=== PATIENT | female | born 1945 | race Caucasian/White ===

== ENCOUNTER → 2016-12-08 | Outpatient (CLI) | payer OTHER ==
[~2016-12-08] VITALS: Ht 160 cm; Wt 67.1 kg
[~2016-12-08] MED LIST: ALDACTONE25 MG PO; ALDACTONE50 MG PO; BIOTIN1 MG PO; HYDROCODONE-AP1 EAC6 PO; IBUPROFEN 600600 M1 PO; LEVOTHYROXIN0.075 MG PO; LEVOTHYROXINE0.05 MG PO; LIPITOR 20 MG T20 M1 PO; NORTRIPTYLINE H10 M1 PO; OXYCODONE-ACET1 EAC2 PO; RESTORIL15 MG PO; RESTORIL7.5 MG PO; TRAMADOL 50 MG50 MG PO; VITAMIN D1000 UNI1 PO; VOLTAREN GEL 1100 G1 TOP; [UNRECOGNIZED DRUG - OTHER]; [UNRECOGNIZED DRUG - OTHER]
--- NOTE | ~2016-12-08 | HPC ---
[facility] [address] [place] [address] PAIN MANAGEMENT CONSULTATION Name: DAVID AUGUSTINE Room #: REG TOMY RomeoArnulfo.#: [id number] Admission: 12/08/16 Attend Phys: Fran Sapp MD Discharge: Date of : 49 Report #: [id number] THIS REPORT FOR: //name// CC: Tristen Sapp DATE OF SERVICE: 12/08/2016 DATE OF REGISTRATION: 12/08/2016 Followup visit for chronic intractable right hip pain. The patient returns to the pain clinic today for a refill of oxycodone. I provided with small amounts of oxycodone on a daily basis. She drives a good distance from [facility]. She was last seen about 8 months ago. Over the course of that time, she has had a total of 270 oxycodone tablets, so she uses on an average about 1 tablet a day. At times, she breaks them in half and there are days where she takes two and days where she takes none. She does not require this on a day to day basis; however, when she has it available, it dramatically reduces her pain. Her pain is a 6/10 today and she can reduce that by at least 50% or more when she has oxycodone available to take after an active day of either prolonged driving or activities. She is here today in the city with her grandchildren. She made an appointment to be seen. PAST MEDICAL HISTORY: Remarkable for an injury in 2006 when she fell and was stepped on by a horse. She says she has had ongoing pain throughout that hip, responding to medication. We have done some injections without much benefit. Urine drug screen in the past was performed and was negative for medication provided. Because of the long interval in between her visits, we anticipated or assumed that she was receiving medication only from us and she had simply run out of medication. A ____ was performed and there were no other prescribers for medication, although she did have some cough syrup provided by her primary care physician ____ a few months ago when she had an upper respiratory tract infection. This was no more than 7 days of an antitussive cough syrup that had some hydrocodone in it. We discussed the terms of our opioid agreement. We reviewed the opioid crisis in the [place]. We discussed the CDC guidelines. Under terms of our opioid agreement, I have agreed to provide her with another prescription today with release in 4 and 8 weeks. She is some distance away. I will, however, provide her instead of 90 tablets per prescription, I will provide her with 60, that is closer to what she is actually using per month. [address] [address] PAIN MANAGEMENT CONSULTATION Name: DAVID AUGUSTINE Room #: REG TOMY Butts.#: [id number] Admission: 12/08/16 Attend Phys: Fran Sapp MD Discharge: Date of : 49 Report #: [id number] PHYSICAL EXAMINATION: Her blood pressure is 114/85, heart rate 82, respirations 16. BMI is 26.5. She shows no signs of overmedication, anxiety or depression. She is able to move from sitting to standing position without difficulty. She walks without a cane or assistive device. There is no significant antalgic feature to her gait. Examination of the right hip reveals some tenderness overlying the trochanter, which is moderate. There is mild pain with internal and external rotation. IMPRESSION: 1. Chronic trochanteric bursitis and hip pain. Iliotibial band syndrome. Pain is related to an injury, when she fell from a horse nearly 10 years ago. Chronic intractable pain. 2. Management of high risk medication. RECOMMENDATIONS: Medications renewed under terms of our agreement, a total of 180 tablets provided over release the next 3 months. I will see her back in the clinic as needed. By: [id number] Fran Sapp MD /nt
[2016-12-08 14:20] VITALS: BP 114/85
== END | disposition home or self-care (01) ==
LOC: PAIN 06:55
DX: M70.61 Trochanteric bursitis, right hip (principal); G89.29 Other chronic pain; M76.31 Iliotibial band syndrome, right leg; F11.20 Opioid dependence, uncomplicated; Z91.81 History of falling

== ENCOUNTER → 2018-01-07 | Outpatient (CLI) | payer OTHER ==
[~2018-01-07] VITALS: Ht 160 cm; Wt 69.2 kg
[~2018-01-07] MED LIST changes: +ARNICA120 ML TOP; +CASODEX 50 MG T50 M1 PO; +NAPROXEN375 M1 PO
--- NOTE | ~2018-01-07 | HPC ---
[facility] [address] [address] PAIN MANAGEMENT CONSULTATION Name: DAVID AUGUSTINE Room #: REG TOMY Beckie.#: [id number] Admission: 01/07/18 Attend Phys: Fran Sapp MD Discharge: Date of : 49 Report #: [id number] THIS REPORT FOR: //name// CC: Tristen Sapp DATE OF SERVICE: 01/07/2018 Followup visit for severe intractable left hip pain. The patient has returned to pain clinic today for followup. She has chronic hip pain well documented throughout my record. We have been providing with medication under terms of written opioid agreement. She uses oxycodone 10/325 twice a day. This is a morphine milligram equivalency of 30. She has shown no side effects and is grateful for this pain relief that she gets and improves her day-to-day function. She safeguards her medication carefully. I have given her prescriptions today for the oxycodone as well as 2 prescriptions, one for Celebrex and one for Motrin 600 mg t.i.d. She will evaluate these on their merits. She should not take both anti-inflammatories on the same day. A note was filed to the pharmacist explaining our plans. It has been about 2-1/2 years since I have done a drug screen and I recommended an oral buccal drug screen today, which we did prior to her discharge. We will review the results of this random study. IMPRESSION: 1. Chronic right hip pain due to a distant trauma with trochanteric bursitis. 2. Management of opioid therapy under terms of written agreement. [facility] was again reviewed and that showed no evidence of misuse, abuse or multiple providers. PLAN: Her medications were released under terms of our agreement, and I will see her back in the pain clinic for followup in 3 months. By: [id number] Fran Sapp MD /nt
[2018-01-07 09:40] VITALS: BP 134/86
== END ==
LOC: PAIN 06:10
DX: M70.61 Trochanteric bursitis, right hip (principal); G89.29 Other chronic pain; Y93.89 Activity, other specified; Z79.891 Long term (current) use of opiate analgesic

== ENCOUNTER → 2018-06-18 | Outpatient (CLI) | payer OTHER ==
[~2018-06-18] VITALS: Ht 160 cm; Wt 70.6 kg
[~2018-06-18] MED LIST changes: +LASIX 20 MG TAB20 MG PO; +VENTOLIN HFA 1818 GM INH
[2018-06-18 14:32] VITALS: BP 127/86
--- NOTE | 2018-06-18 14:38 | NUR ---
Pain Clinic Assessment: 1. History of Osteoarthritis: Not Applicable History of Rheumatoid Arthritis: Not Applicable 2. Height: 5 ft. 3 in. 160.0 cm. Weight: 155.6 lb. oz. 70.580 kg. Patient's BMI: 27.6 3. Vital Signs: BP: 127/86 Pulse: 74 Resp: 16 Temp: 02 Sat: 98 ECG Mon: 4. Pain Intensity: 4 5. Fall Risk: Dizziness: N Needs help standing or walking: N Fallen in the last 3 months: N Fall risk comments: 6. Patient on Blood Thinner: None 7. History of Hypertension: N 8. Opioid Therapy greater than 6 weeks: Y Opiate Contract Signed: 03/14/15 9. Risk Assessment Tool Provided: 0-LOW RISK 10. Functional Assessment Tool: 11. Recreational Drug Use: Never Drug Type: Tobacco Use: Never Smoker Tobacco Type: Amount or Packs/day: How Many Years: Alcohol Use: No Frequency: Quant:
--- NOTE | 2018-06-23 11:18 | HPC ---
[facility] [address] [place] [address] PAIN MANAGEMENT CONSULTATION Name: DAVID AUGUSTINE Room #: REG TOMY RomeoEarleneKevin.#: [id number] Admission: 06/18/18 Attend Phys: Fran Sapp MD Discharge: Date of : 49 Report #: [id number] THIS REPORT FOR: //name// CC: Tristen Sapp DATE OF SERVICE: 06/18/2018 The patient returns to pain clinic today in followup for medication management. She has severe right hip pain, which is posttraumatic. She was injured by horse stepping on her many years ago and has complained of chronic pain ever since. Today, she says it feels as though her hip is slipping in and out of socket. She has not had x-rays for some time. Pain intensity is a 4/10. It is worse with sitting and driving. She has used arnica gel in addition to the medications that we provided her under terms of written agreement. She is grateful for the relief that she gets from her oxycodone, taking OxyContin 10/325 twice a day and ibuprofen or Celebrex sparingly. She does not take them on a daily basis understanding the potential side effects and risks. She does not have significant opioid related side effects. Buccal drug testing was been performed and there were no suspected findings. She receives her medicine at one pharmacy and the review of the [facility] [email or web address]] information shows that I am the only provider of the oxycodone, although she did receive some cough syrup from a local physician, Dr. Michelle Mario in [place] in April. PHYSICAL EXAMINATION: GENERAL: Pleasant, alert and oriented. No signs of overmedication, depression or anxiety. VITAL SIGNS: Blood pressure is 127/86, heart rate 74, respirations 16. BMI is 27.6. MUSCULOSKELETAL: Examination of the hip reveals good range of motion in the supine position. Internal and external rotation performed without difficulty. There is mild tenderness over the anterior hip joint and tenderness in the groin as well. Straight leg raising is negative. No focal weakness is noted, muscle testing with abduction and adduction, leg extension and flexion. Sensation is normal in lower extremities. Deep tendon reflexes are normal. No recent x-rays of the hip are noted. IMPRESSION: 1. 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 2. History of trochanteric bursitis. 3. Management of opioid medication under written agreement. [address] [address] PAIN MANAGEMENT CONSULTATION Name: DAVID AUGUSTINE [facility] #: [facility] [id number] Admission: 06/18/18 Attend Phys: Fran Sapp MD Discharge: Date of : 49 Report #: [id number] PLAN: 1. I talked about perhaps getting an MRI to give us more information about the ongoing pain generator. She does not want to do anything different. An MRI, really I do not think would provide us any information with change, which she would do at this point in time and she understands that if she ever decides to pursue other options including surgical options either arthroscopy or perhaps even if severe and have a hip replacement, we would then move forward with imaging studies, that is her preference. 2. I will continue her medications under terms of our written agreement. She will safeguard her medications carefully. Followup visit scheduled in 3 months. She travels some distance to see me. I will be glad to pass medication off to a local physician if they are comfortable for writing for this low MME of opioid medication. Her daily MME is 30. <ELECTRONICALLY SIGNED> By: Fran Sapp MD 06/23/18 [id number] [id number] 21 Fran Sapp MD /nt
== END ==
LOC: PAIN 08:14
DX: M25.551 Pain in right hip (principal); G89.29 Other chronic pain; M70.60 Trochanteric bursitis, unspecified hip; Z79.891 Long term (current) use of opiate analgesic

== ENCOUNTER → 2019-10-27 | Outpatient (CLI) | payer OTHER ==
[~2019-10-27] VITALS: Ht 160 cm; Wt 70.1 kg
[~2019-10-27] MED LIST changes: +OXYCODONE-ACET1 EACH PO
--- NOTE | ~2019-10-27 | HPC ---
[facility] [address] [address] PAIN MANAGEMENT CONSULTATION Name: DAVID AUGUSTINE Room #: REG TOMY Anjali#: [id number] Admission: 10/27/19 Attend Phys: Fran Sapp MD Discharge: Date of : 49 Report #: [id number] THIS REPORT FOR: cc: Tristen France MD, Joseph R. MD Morgan, Richard L. MD ~ CC: Dr. Sera Sapp DATE OF SERVICE: 10/27/2019 CHIEF COMPLAINT: Chronic pain, bilateral thighs, hips and low back. The patient is a pleasant 74-year-old female who we previously cared for in our clinic between 2013 and 2018. At that time, her primary complaint involved her right hip, which was injured in an accident with horse injury. She was stepped on suffering an injury to her right hip and greater trochanter. Pain has never really resolved. For many years, she was treated conservatively and walked with a limp. Pain limited her day-to-day activities. In 2013, we saw her for the first time roughly 9 years after her initial injury. We ordered physical therapy for the hip and also suggested trochanteric bursa injections. She tried non-opioid medications including oral and topical nonsteroidal anti-inflammatory drugs. Ultimately, we moved into low dose opioid therapy and she began using oxycodone under an opioid agreement. I reviewed those records and her prescriptions were provided either bimonthly or trimonthly and her maximum dose of oxycodone never exceeded oxycodone 10/325 one-half to one tablet twice a day. An opioid agreement was established. Some urine drug screen followup tests were performed and there were never any red flag behaviors. She was lost to follow up, roughly 2 years ago. I discussed the reason why she left the practice. She reports financial difficulties. She fell into bankruptcy after the passing of her who is much older than her. She had difficulty traveling to and from [facility]. She tried to manage without opioid medication. The pain is worsened and now she is scoring her pain at a 6/10 and at night it interferes dramatically with her ability to sleep. An impacted pain score was performed today and she scored 33/70. This is not too bad, but she has interference and general activity, mood, walking, normal work, sleep and enjoyment of life all above the level 5 achieved a score. She did complete an opioid risk tool score and her total score and risk category is slow 0. [facility] [address] [place] [address] PAIN MANAGEMENT CONSULTATION Name: DAVID AUGUSTINE Room #: REG [facility]#: [id number] Admission: 10/27/19 Attend Phys: Fran Sapp MD Discharge: Date of : 49 Report #: [id number] She denies use of tobacco and alcohol. She lives alone and independently. PHYSICAL EXAMINATION: Pleasant female, no signs of overmedication, depression or anxiety. Her blood pressure is 132/84, heart rate 89, respirations 16, O2 sat 98. She is 5 feet 3 inches, 154 pounds, BMI is 27.4. She can move independently from sitting to standing position, her gait is mildly antalgic. She has pain in the neck with flexion, extension, rotation, and [id number] tilt. Myofascial tenderness is located posteriorly in the trapezius, splenius capitis and cervicalgia. She also has bilateral trochanter tenderness and now still worse in the right than the left. Pain with rotational movements. IMPRESSION: 1. 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 2. Bilateral trochanteric bursitis. 3. Cervicalgia. 4. History of use of opioids under terms of written opioid agreement without evidence of misuse, abuse. No evidence of prior addictive behaviors. No evidence of opioid use disorder. RECOMMENDATIONS: I have agreed to renew opioids for her and followup in [address] for her to travel from [place], [place] where she would normally receive her care, I would be fine if her primary care physician was willing to provide her medication on a very scheduled limited dose. I am going to provide her with oxycodone 5/325 one tablet b.i.d. p.r.n. This is a total of 10 mg of oxycodone a day or MME of 15, considered very low by the CDC guideline. We reviewed the terms of our opioid agreement, the importance of carefully safeguarding medication, using the medication, both prophylactically and in response to pain. Finally, she was given a prescription for amitriptyline by her primary care physician. I agree with the use of amitriptyline and spent 10 minutes with her discussing the ascending and descending pathways for pain management. Amitriptyline is a tricyclic antidepressant works on the descending pain pathways in essence turning down the pain signals and decreasing the intensity of pain. I explained to her how she should use it every night and described with her side effects including the anticholinergic side effects on the beneficial sleep and mood, side effects of amitriptyline. She will give it a go and follow up with her primary care physician regarding use of the amitriptyline. She can use them concurrently. Followup visit planned in 2 months. By: [id number] Fran Sapp MD /kim
[2019-10-27 14:26] VITALS: BP 132/84
--- NOTE | 2019-10-27 14:42 | NUR ---
Pain Clinic Assessment: 1. History of Osteoarthritis: Not Applicable History of Rheumatoid Arthritis: Not Applicable 2. Height: 5 ft. 3 in. 160.0 cm. Weight: 154.6 lb. oz. 70.126 kg. Patient's BMI: 27.4 3. Vital Signs: BP: 132/84 Pulse: 89 Resp: 16 Temp: 02 Sat: 98 ECG Mon: 4. Pain Intensity: 6 5. Fall Risk: Dizziness: N Needs help standing or walking: N Fallen in the last 3 months: N Fall risk comments: 6. Patient on Blood Thinner: None 7. History of Hypertension: N 8. Opioid Therapy greater than 6 weeks: Y Opiate Contract Signed: 03/14/15 9. Risk Assessment Tool Provided: 0-LOW RISK 10. Functional Assessment Tool: 11. Recreational Drug Use: Never Drug Type: Tobacco Use: Never Smoker Tobacco Type: Amount or Packs/day: How Many Years: Alcohol Use: No Frequency: Quant:
== END ==
LOC: PAIN 06:56
DX: M54.5 Low back pain (principal); M25.552 Pain in left hip; M25.551 Pain in right hip; M54.2 Cervicalgia; M71.58 Other bursitis, not elsewhere classified, other site; F11.20 Opioid dependence, uncomplicated; Z98.890 Other specified postprocedural states

== ENCOUNTER → 2020-01-02 | Outpatient (CLI) | payer OTHER ==
[~2020-01-02] VITALS: Ht 160 cm; Wt 69.1 kg
--- NOTE | ~2020-01-02 | HPC ---
[facility] [address] [place] [address] PAIN MANAGEMENT CONSULTATION Name: DAVID AUGUSTINE Room #: REG TOMY Anjali#: [id number] Admission: 01/02/20 Attend Phys: Fran Sapp MD Discharge: Date of : 49 Report #: [id number] THIS REPORT FOR: cc: Tristen France MD, Joseph R. MD Morgan, Richard L. MD ~ CC: Tristen Sapp DATE OF SERVICE: 01/02/2020 CHIEF COMPLAINT: Chronic pain, bilateral trochanteric bursitis. HISTORY OF PRESENT ILLNESS: The patient returns to pain clinic today for renewal of pain medications. I reinitiated her opioid medications, a low dose, 15 MME. She says it has helped and she is grateful for the pain relief and we discussed today a slight increase. Duration of response and intensity of relief was not as great as she had hoped and I agree that it is reasonable to give her a slightly higher dose, but we will try and keep her at a low dose. I would like to keep her under 30 morphine milligram equivalents per day. She is 74 years old. She looks younger than her stated age. She drove all the way here because she cannot find anybody provide her with pain medication that will be effective near her home at [place], [place]. Physicians fearful of prescribing opioids have made her drive all this distance to see me in [place]. We have discussed other options including injections, but they have never been very helpful. We discussed the philosophy of using opioids carefully and cautiously at low dose on a p.r.n. basis going forward. She understands that she may be on these indefinitely. She has no significant side effects, carefully safeguards her medicine. She is on an opioid agreement at this time with our clinic. PQRS: Negative for osteoarthritis. Most of her pain seems to be soft tissue and related to the bursa. She is 5 feet 3 inches with a BMI of 27.0. She tries to remain active. Blood pressure is 132/81, heart rate 73, O2 sat 98% on room air. Pain intensity 5-6/10. She has not fallen. She is not a fall risk. She is on no blood thinners nor is she treated for hypertension. Her opioid agreement was reviewed with her once again today and she promises to keep a close eye on her medications and safeguard them as requested. Urine drug screen may be performed randomly in the next 6 months as we have initiated her contract. Her functional assessment score is 30. Her risk assessment tool zero. She denies tobacco or alcohol. Medications were renewed under terms of our agreement. [address] [address] PAIN MANAGEMENT CONSULTATION Name: DAVID AUGUSTINE Room #: REG Ciro Alba#: [id number] Admission: 01/02/20 Attend Phys: Fran Sapp MD Discharge: Date of : 49 Report #: [id number] Followup visit is scheduled in 2 months. IMPRESSION: 1. Posttraumatic injury to right hip with chronic pain and trochanteric bursitis. 2. Left hip pain also similar with localized tenderness and suggestion of trochanteric bursitis. 3. Cervicalgia. 4. Management of high risk opioid medications under terms of written agreement. By: [id number] Fran Sapp MD /nt
[2020-01-02 13:56] VITALS: BP 132/81
--- NOTE | 2020-01-02 14:11 | NUR ---
Pain Clinic Assessment: 1. History of Osteoarthritis: NONE History of Rheumatoid Arthritis: NONE 2. Height: 5 ft. 3 in. 160.0 cm. Weight: 152.4 lb. oz. 69.128 kg. Patient's BMI: 27.0 3. Vital Signs: BP: 132/81 Pulse: 73 Resp: 14 Temp: 02 Sat: 98 ECG Mon: 4. Pain Intensity: 5-6 5. Fall Risk: Dizziness: N Needs help standing or walking: N Fallen in the last 3 months: N Fall risk comments: 6. Patient on Blood Thinner: None 7. History of Hypertension: N 8. Opioid Therapy greater than 6 weeks: Y Opiate Contract Signed: 03/14/15 9. Risk Assessment Tool Provided: 0-LOW RISK 10. Functional Assessment Tool: 11. Recreational Drug Use: Never Drug Type: Tobacco Use: Never Smoker Tobacco Type: Amount or Packs/day: How Many Years: Alcohol Use: No Frequency: Quant:
== END ==
LOC: PAIN 07:05
PROVIDERS: ATTEND Anesthesiology Pain Medicine
DX: M70.62 Trochanteric bursitis, left hip (principal); G89.29 Other chronic pain; M70.61 Trochanteric bursitis, right hip; I10 Essential (primary) hypertension; M54.2 Cervicalgia; M25.552 Pain in left hip; F11.90 Opioid use, unspecified, uncomplicated

== ENCOUNTER → 2020-03-01 | Outpatient (CLI) | payer OTHER ==
[~2020-03-01] VITALS: Ht 160 cm; Wt 70.7 kg
[2020-03-01 09:15] VITALS: BP 155/91
--- NOTE | 2020-03-01 09:23 | NUR ---
Pain Clinic Assessment: 1. History of Osteoarthritis: NONE History of Rheumatoid Arthritis: NONE 2. Height: 5 ft. 3 in. 160.0 cm. Weight: 155.8 lb. oz. 70.670 kg. Patient's BMI: 27.6 3. Vital Signs: BP: 155/91 Pulse: 78 Resp: 14 Temp: 02 Sat: 99 ECG Mon: 4. Pain Intensity: 5-6 5. Fall Risk: Dizziness: N Needs help standing or walking: N Fallen in the last 3 months: N Fall risk comments: 6. Patient on Blood Thinner: None 7. History of Hypertension: N 8. Opioid Therapy greater than 6 weeks: Y Opiate Contract Signed: 03/14/15 9. Risk Assessment Tool Provided: 0-LOW RISK 10. Functional Assessment Tool: 11. Recreational Drug Use: Never Drug Type: Tobacco Use: Never Smoker Tobacco Type: Amount or Packs/day: How Many Years: Alcohol Use: No Frequency: Quant:
--- NOTE | 2020-03-02 07:26 | HPC ---
[facility] [address] [place] [address] PAIN MANAGEMENT CONSULTATION Name: DAVID AUGUSTINE [facility] [id number] Admission: 03/01/20 Attend Phys: Don Kramer Discharge: Date of : 49 Report #: [id number] THIS REPORT FOR: cc: DON LOPEZ Physician not on staff Don Kramer ~ CC: Fran Sapp MD DATE OF SERVICE: 03/01/2020 CHIEF COMPLAINT: Chronic pain, bilateral trochanteric bursitis. HISTORY OF PRESENT ILLNESS: The patient returns today for renewal of her pain medications she takes for her ongoing bilateral hip pain. She is complaining more of right hip pain today. 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 She also has some hand pain that continues to be problematic. She characterizes her pain as a constant ache, today rating her pain a 5-6, which is slightly higher since she has been out of her meds, since possibly Thursday. Normally, she reports a pain score of 2-3/10 when she is taking her medications as prescribed. Today, she states that she misjudged when she needed to come for an appointment and she called yesterday for this appointment today. She reports repositioning and resting are beneficial as well as her medication. She denies any daytime somnolence or constipation as a result of her medication. ALLERGIES: No known drug allergies. CURRENT LIST OF MEDICATIONS: Oxycodone 5/325 t.i.d., ibuprofen 600 mg, Lasix, Casodex, arnica tincture, temazepam, Synthroid, and vitamin D. PQRS: 1. Negative for osteo or rheumatoid arthritis. 2. Height is 5 feet 3 inches, weight is 155, BMI is 27. Vital signs 155/91, pulse is 78, respirations 14, oxygen sat is 99. 3. Pain score is 5-6. 4. Denies dizziness, does not need help walking or standing, has not fallen in the last 3 months. 5. The patient is not on any blood thinners or medicine for hypertension. 6. Opioid therapy is greater than 6 weeks; therefore, an opioid signed contract is on the chart. Risk assessment is low. Functional assessment is 33/70. 7. Recreational drug use, she denies. She is not a smoker and does not drink alcohol. According to the prescription monitoring system, the patient is filling appropriately for her medications in a timely fashion. Her [address] [address] PAIN MANAGEMENT CONSULTATION Name: DAVID AUGUSTINE Room #: REG [facility] Anjali#: [id number] Admission: 03/01/20 Attend Phys: Don Kramer Discharge: Date of : 49 Report #: [id number] milliequivalent is 22.5 MMEs per day. We will collect a random drug screen at her next visit since she has been out of her medications now for 4 days. PHYSICAL EXAMINATION: GENERAL: This is an alert and orientated 74-year-old female, rating her pain score at 5-6. No signs of overmedication. HEENT: Normocephalic, atraumatic. Extraocular eye muscles are intact. She is wearing a mask. MUSCULOSKELETAL: She can move independently from the sitting to standing position. Her gait is mildly antalgic. She has bilateral trochanteric tenderness, worse on the right than the left. Pain is increased with rotational movements. Straight leg raising is negative. Lower extremity strength and sensation is normal in lower extremities. IMPRESSION: 1. 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 2. Bilateral trochanteric bursitis. 3. History of opioid use under written agreement. We reviewed the fact that opiate medications are being used to provide analgesia adequate to support activities of daily living, not attempting to achieve a specific pain score on the 0-10 Visual Analog Scale. The current opiate medications are providing sufficient analgesia to allow the patient to participate in activities of daily living. The patient is not exhibiting any aberrant behavior suggestive of drug diversion. The patient is not having any adverse reactions to medications. The patient is not suffering from daytime somnolence or mental acuity changes. The patient is managing opiate-induced constipation with appropriate dhhr-jng-cuaniah agents and dietary considerations. The patient was counseled on concern for caution with operating a motor vehicle while using opiate medications. PLAN: 1. We discussed treatment options with the patient today. The patient finds her oxycodone beneficial. Currently, she has been busy with the census and has taken occasionally some days an extra pill. Other days, requiring less depending on her activity. We will have Dr. Fran Sapp send refills of this medication of oxycodone 5/325, #90 to her local pharmacy for today and 4 weeks supply. Encouraging the patient to call for an appointment when she fills her second prescription, so she does not run out of medications in the future. 2. We did talk briefly that the Voltaren gel is [id number] now if she would like to try this on her hip, especially her right, which is more problematic to see if that is beneficial. She does take ibuprofen occasionally at least once a day that she may find this beneficial as well. 3. We did discuss sleep issues. The patient takes temazepam from her primary care doctor. She does not like to take it every day. We did discuss melatonin in the various strengths that she may try, which is [id number] [facility] [address] [place] [address] PAIN MANAGEMENT CONSULTATION Name: ELVI AUGUSTINEMaximo Rice Room #: [facility] Anjali#: [id number] Admission: 03/01/20 Attend Phys: Don Kramer Discharge: Date of : 49 Report #: [id number] to see if that is helpful in sleep as well. 4. The patient will return for an appointment in two months. The patient is seen today in collaboration with Dr. Fran Sapp. <ELECTRONICALLY SIGNED> By: Don Kramer 03/02/20 [id number] Don Kramer /nt
== END ==
LOC: PAIN 06:38
PROVIDERS: ATTEND Clinical Nurse Specialist Adult Health
DX: M70.61 Trochanteric bursitis, right hip (principal); M70.62 Trochanteric bursitis, left hip; G89.29 Other chronic pain; F11.20 Opioid dependence, uncomplicated; Z87.81 Personal history of (healed) traumatic fracture

== ENCOUNTER → 2020-04-30 | Outpatient (CLI) | payer OTHER ==
[~2020-04-30] VITALS: Ht 160 cm; Wt 70.0 kg
[2020-04-30 12:32] VITALS: BP 127/91
--- NOTE | 2020-04-30 12:39 | NUR ---
Pain Clinic Assessment: 1. History of Osteoarthritis: NONE History of Rheumatoid Arthritis: NONE 2. Height: 5 ft. 3 in. 160.0 cm. Weight: 154.4 lb. oz. 70.035 kg. Patient's BMI: 27.4 3. Vital Signs: BP: 127/91 Pulse: 74 Resp: 18 Temp: 02 Sat: 100 ECG Mon: 4. Pain Intensity: 5 5. Fall Risk: Dizziness: N Needs help standing or walking: N Fallen in the last 3 months: N Fall risk comments: 6. Patient on Blood Thinner: None 7. History of Hypertension: N 8. Opioid Therapy greater than 6 weeks: Y Opiate Contract Signed: 03/14/15 9. Risk Assessment Tool Provided: 0-LOW RISK 10. Functional Assessment Tool: 11. Recreational Drug Use: Never Drug Type: Tobacco Use: Never Smoker Tobacco Type: Amount or Packs/day: How Many Years: Alcohol Use: No Frequency: Quant:
== END ==
LOC: PAIN 06:54
PROVIDERS: ATTEND Anesthesiology Pain Medicine
DX: M25.552 Pain in left hip (principal); G89.29 Other chronic pain; F11.20 Opioid dependence, uncomplicated

== ENCOUNTER → 2020-07-05 | Outpatient (CLI) | payer OTHER ==
[~2020-07-05] VITALS: Ht 160 cm; Wt 69.1 kg
[~2020-07-05] MED LIST changes: +ASA81BEC PO; +CRESTOR40 MG PO; +MEDROLDOSEPACK PO
[2020-07-05 13:58] VITALS: BP 140/76
--- NOTE | 2020-07-05 14:25 | NUR ---
Pain Clinic Assessment: 1. History of Osteoarthritis: NONE History of Rheumatoid Arthritis: NONE 2. Height: 5 ft. 3 in. 160.0 cm. Weight: 152.4 lb. oz. 69.128 kg. Patient's BMI: 27.0 3. Vital Signs: BP: 140/76 Pulse: 81 Resp: 14 Temp: 02 Sat: 98 ECG Mon: 4. Pain Intensity: 6 TO 8 5. Fall Risk: Dizziness: N Needs help standing or walking: N Fallen in the last 3 months: Y Fall risk comments: 6. Patient on Blood Thinner: None 7. History of Hypertension: N 8. Opioid Therapy greater than 6 weeks: Y Opiate Contract Signed: 03/14/15 9. Risk Assessment Tool Provided: 0-LOW RISK 10. Functional Assessment Tool: 11. Recreational Drug Use: Never Drug Type: Tobacco Use: Never Smoker Tobacco Type: Amount or Packs/day: How Many Years: Alcohol Use: No Frequency: Quant:
== END ==
LOC: PAIN 06:58
PROVIDERS: ATTEND Anesthesiology Pain Medicine
DX: M70.62 Trochanteric bursitis, left hip (principal); M70.61 Trochanteric bursitis, right hip; G89.4 Chronic pain syndrome; F11.20 Opioid dependence, uncomplicated; Z88.8 Allergy status to other drugs, medicaments and biological substances; Z79.899 Other long term (current) drug therapy

== ENCOUNTER → 2020-08-27 | Outpatient (CLI) | payer OTHER ==
[~2020-08-27] VITALS: Ht 160 cm; Wt 69.7 kg
[~2020-08-27] MED LIST changes: +ENDOCET 5-3251 EACH PO; +FLEXERIL PO; +SOMA250 MG PO
[2020-08-27 14:07] VITALS: BP 114/79
--- NOTE | 2020-08-27 14:22 | NUR ---
Pain Clinic Assessment: 1. History of Osteoarthritis: NONE History of Rheumatoid Arthritis: NONE 2. Height: 5 ft. 3 in. 160.0 cm. Weight: 153.6 lb. oz. 69.672 kg. Patient's BMI: 27.2 3. Vital Signs: BP: 114/79 Pulse: 86 Resp: 14 Temp: 02 Sat: 97 ECG Mon: 4. Pain Intensity: 5 5. Fall Risk: Dizziness: N Needs help standing or walking: N Fallen in the last 3 months: N Fall risk comments: 6. Patient on Blood Thinner: None 7. History of Hypertension: N 8. Opioid Therapy greater than 6 weeks: Y Opiate Contract Signed: 03/14/15 9. Risk Assessment Tool Provided: 0-LOW RISK 10. Functional Assessment Tool: 11. Recreational Drug Use: Never Drug Type: Tobacco Use: Never Smoker Tobacco Type: Amount or Packs/day: How Many Years: Alcohol Use: No Frequency: Quant:
== END ==
LOC: PAIN 06:52
PROVIDERS: ATTEND Anesthesiology Pain Medicine
DX: M70.60 Trochanteric bursitis, unspecified hip (principal); M53.3 Sacrococcygeal disorders, not elsewhere classified; M26.609 Unspecified temporomandibular joint disorder, unspecified side; G89.29 Other chronic pain; F11.20 Opioid dependence, uncomplicated; Z88.8 Allergy status to other drugs, medicaments and biological substances; Z79.899 Other long term (current) drug therapy

== ENCOUNTER → 2020-10-25 | Outpatient (CLI) | payer OTHER ==
[~2020-10-25] VITALS: Ht 160 cm; Wt 72.2 kg
[~2020-10-25] MED LIST changes: +FISH OIL 1,0001 EAC1 PO
[2020-10-25 10:28] VITALS: BP 114/70
--- NOTE | 2020-10-25 10:38 | NUR ---
Pain Clinic Assessment: 1. History of Osteoarthritis: NONE History of Rheumatoid Arthritis: NONE 2. Height: 5 ft. 3 in. 160.0 cm. Weight: 159.2 lb. oz. 72.213 kg. Patient's BMI: 28.2 3. Vital Signs: BP: 114/70 Pulse: 71 Resp: 14 Temp: 02 Sat: 98 ECG Mon: 4. Pain Intensity: 8 5. Fall Risk: Dizziness: N Needs help standing or walking: N Fallen in the last 3 months: N Fall risk comments: 6. Patient on Blood Thinner: None 7. History of Hypertension: N 8. Opioid Therapy greater than 6 weeks: Y Opiate Contract Signed: 03/14/15 9. Risk Assessment Tool Provided: 0-LOW RISK 10. Functional Assessment Tool: 11. Recreational Drug Use: Never Drug Type: Tobacco Use: Never Smoker Tobacco Type: Amount or Packs/day: How Many Years: Alcohol Use: No Frequency: Quant:
== END ==
LOC: PAIN 07:26
PROVIDERS: ATTEND Clinical Nurse Specialist Adult Health
DX: M70.61 Trochanteric bursitis, right hip (principal); M70.62 Trochanteric bursitis, left hip; M53.3 Sacrococcygeal disorders, not elsewhere classified; F11.20 Opioid dependence, uncomplicated

== ENCOUNTER → 2021-02-28 | Outpatient (CLI) | payer OTHER ==
[~2021-02-28] VITALS: Ht 160 cm; Wt 70.6 kg
[~2021-02-28] MED LIST changes: +VITAMIN D32400 UNIT/ PO
[2021-02-28 11:05] VITALS: BP 128/82
--- NOTE | 2021-02-28 11:20 | NUR ---
Pain Clinic Assessment: 1. History of Osteoarthritis: NONE History of Rheumatoid Arthritis: NONE 2. Height: 5 ft. 3 in. 160.0 cm. Weight: 155.6 lb. oz. 70.580 kg. Patient's BMI: 27.6 3. Vital Signs: BP: 128/82 Pulse: 58 Resp: 16 Temp: 02 Sat: 100 ECG Mon: 4. Pain Intensity: 8 5. Fall Risk: Dizziness: N Needs help standing or walking: N Fallen in the last 3 months: N Fall risk comments: 6. Patient on Blood Thinner: None 7. History of Hypertension: N 8. Opioid Therapy greater than 6 weeks: Y Opiate Contract Signed: 03/14/15 9. Risk Assessment Tool Provided: 0-LOW RISK 10. Functional Assessment Tool: 11. Recreational Drug Use: Never Drug Type: Tobacco Use: Never Smoker Tobacco Type: Amount or Packs/day: How Many Years: Alcohol Use: No Frequency: Quant:
== END ==
LOC: PAIN 10:27
PROVIDERS: ATTEND Anesthesiology Pain Medicine
DX: G89.4 Chronic pain syndrome (principal); M25.551 Pain in right hip; M25.552 Pain in left hip; M70.62 Trochanteric bursitis, left hip; M70.61 Trochanteric bursitis, right hip; Z79.899 Other long term (current) drug therapy; Z79.891 Long term (current) use of opiate analgesic; Y93.9 Activity, unspecified

== ENCOUNTER → 2021-07-18 | Outpatient (CLI) | payer OTHER ==
[~2021-07-18] VITALS: Ht 160 cm; Wt 71.3 kg
[2021-07-18 14:12] VITALS: BP 143/92
--- NOTE | 2021-07-18 14:23 | NUR ---
Pain Clinic Assessment: 1. History of Osteoarthritis: EVERY WHERE History of Rheumatoid Arthritis: NONE 2. Height: 5 ft. 3 in. 160.0 cm. Weight: 157.2 lb. oz. 71.305 kg. Patient's BMI: 27.9 3. Vital Signs: BP: 143/92 Pulse: 78 Resp: 16 Temp: 02 Sat: 98 ECG Mon: 4. Pain Intensity: 5 TO 7 5. Fall Risk: Dizziness: N Needs help standing or walking: N Fallen in the last 3 months: N Fall risk comments: 6. Patient on Blood Thinner: None 7. History of Hypertension: N 8. Opioid Therapy greater than 6 weeks: Y Opiate Contract Signed: 03/14/15 9. Risk Assessment Tool Provided: 0-LOW RISK 10. Functional Assessment Tool: 11. Recreational Drug Use: Never Drug Type: Tobacco Use: Never Smoker Tobacco Type: Amount or Packs/day: How Many Years: Alcohol Use: No Frequency: Quant:
== END ==
LOC: PAIN 07:28
PROVIDERS: ATTEND Anesthesiology Pain Medicine
DX: M25.552 Pain in left hip (principal); M25.551 Pain in right hip; Z88.8 Allergy status to other drugs, medicaments and biological substances; Z79.899 Other long term (current) drug therapy